=== PATIENT | male | born 1980 | race African-American/Black ===

== ENCOUNTER 2018-10-24 00:53 | Emergency (ER) | payer MEDICAID ==
[~2018-10-24] VITALS: Ht 175.3 cm; Wt 91.7 kg
[2018-10-24 04:39] VITALS: BP 142/74
== END 2018-10-24 05:55 | disposition left against medical advice (07) ==
LOC: ER 00:53
DX: K13.0 Diseases of lips (principal); Z53.21 Procedure and treatment not carried out due to patient leaving prior to being seen by health care provider

== ENCOUNTER 2018-10-24 10:08 | Emergency (ER) | payer MEDICAID ==
[~2018-10-24] VITALS: Ht 172.7 cm; Wt 76.0 kg
[2018-10-24] MEDS ORDERED: LIDOCAINE 1%/EPI 1:100,000 10 ML VIAL IJ ONE (10:30)
[2018-10-24] MEDS ORDERED: BACITRACIN ZINC OINT UDPKT TOP ONE (10:30)
[2018-10-24] MEDS ORDERED: HALOPERIDOL LACTATE 5MG/ML VIAL IM ONE ×2 (13:30→13:31)
[2018-10-24] MEDS ORDERED: LORAZEPAM 2MG/ML CPJ IM PRN (13:30)
[2018-10-24] MEDS ORDERED: DIPHENHYDRAMINE 50MG/ML VIAL IM PRN (13:30)
[2018-10-24] MEDS ORDERED: LORAZEPAM 2MG/ML CPJ ONE (13:31)
[2018-10-24] MEDS ORDERED: DIPHENHYDRAMINE 50MG/ML VIAL ONE (13:31)
[2018-10-24 16:30] VITALS: BP 116/74
== END 2018-10-24 17:22 | disposition short-term general hospital (02) ==
LOC: ER 10:08
DX: S01.511A Laceration without foreign body of lip, initial encounter (principal); R45.1 Restlessness and agitation; F31.9 Bipolar disorder, unspecified; V00.131A Fall from skateboard, initial encounter; Y93.51 Activity, roller skating (inline) and skateboarding; Y92.331 Roller skating rink as the place of occurrence of the external cause; Y99.8 Other external cause status
CPT/HCPCS: 12011; 96372; 99285; J1200; J1630; J2060; J3490

== ENCOUNTER 2019-09-17 12:04 | Emergency (ER) | payer MEDICAID ==
[~2019-09-17] VITALS: Ht 177.8 cm; Wt 90.0 kg
[2019-09-17] MEDS ORDERED: BACITRACIN ZINC OINT UDPKT TOP ONE (14:00)
[2019-09-17] MEDS ORDERED: IBUPROFEN 600MG TABLET PO ONE ×2 (14:00→14:15)
[2019-09-17] MEDS ORDERED: LIDOCAINE HCL/PF 1% 10 MG/ML 5ML VIAL IJ ONE (14:00)
[2019-09-17] MEDS ORDERED: BACITRACIN 15GM TUBE TOP ONE (14:15)
[2019-09-17 14:49] VITALS: BP 122/70
== END 2019-09-17 15:14 | disposition home or self-care (01) ==
LOC: ER 12:04
DX: L02.415 Cutaneous abscess of right lower limb (principal); M79.661 Pain in right lower leg
CPT/HCPCS: 99283